=== PATIENT | male | born 1980 | race Two or more races ===

== ENCOUNTER 2017-03-03 11:24 | Emergency (ER) | payer SELFPAY ==
[~2017-03-03] VITALS: Ht 170.2 cm; Wt 81.1 kg
[2017-03-03] MEDS ORDERED: SODIUM CHLORIDE FLUSH 10ML SYR IVF ONE (12:00)
[2017-03-03] MEDS ORDERED: SODIUM CHLORIDE 0.9% 1,000ML IVBOLUS ONE (12:00)
[2017-03-03 12:21] LABS: BLOOD UREA NITROGEN 14 mg/dL (7-18)
[2017-03-03] MEDS ORDERED: SODIUM CHLORIDE 0.9%, 500ML IVBOLUS ONE (13:00)
[2017-03-03] MEDS ORDERED: MORPHINE SULFATE 4 MG/ML, 1ML IVPush ONE (13:00)
[2017-03-03] MEDS ORDERED: ONDANSETRON 2MG/ML, 2ML IVPush ONE (13:00)
[2017-03-03] MEDS ORDERED: OXYC-302 PO (13:15)
[2017-03-03] MEDS ORDERED: MORPHINE SULFATE 4 MG/ML, 1ML ONE (13:29)
[2017-03-03] MEDS ORDERED: ONDANSETRON 2MG/ML, 2ML ONE (13:30)
[2017-03-03] MEDS ORDERED: LORazepam 2 MG/ML, 1ML IVPush ONE (14:00)
[2017-03-03] MEDS ORDERED: LORazepam 2 MG/ML, 1ML ONE (14:01)
[2017-03-03 14:32] VITALS: BP 154/94
== END 2017-03-03 14:34 | disposition home or self-care (01) ==
LOC: ED 13:49
DX: E86.0 Dehydration (principal); M62.82 Rhabdomyolysis; F15.129 Other stimulant abuse with intoxication, unspecified
CPT/HCPCS: 36415; 71010; 74176; 80048; 80061; 81003; 82040; 82550; 85025; 96361; 96374; 96375; 99285; J2060; J2405; J7030; J7040